=== PATIENT | female | born 1995 | race Caucasian/White ===

== ENCOUNTER 2020-07-12 19:02 | Emergency (ER) | payer OTHER ==
[~2020-07-12] VITALS: Ht 165.1 cm; Wt 55.8 kg
[2020-07-12] MEDS ORDERED: CLONAZEPAM1 MG PO (19:39)
[2020-07-12] MEDS ORDERED: ZOLOFT50 MG PO (19:40)
[2020-07-12] MEDS ORDERED: ADDERALL 20 MG20 MG PO (19:40)
== END 2020-07-12 22:18 | disposition home or self-care (01) ==
LOC: ER 19:02
DX: B34.9 Viral infection, unspecified (principal); Z03.818 Encounter for observation for suspected exposure to other biological agents ruled out

== ENCOUNTER 2021-01-15 08:59 | Outpatient (CLI) | payer OTHER ==
[~2021-01-15 08:59] MED LIST: ADDERALL 20 MG20 MG PO; CLONAZEPAM1 MG PO; ZOLOFT50 MG PO
== END 2021-01-15 09:18 | disposition home or self-care (01) ==
LOC: SONOGRAMA 08:59
PROVIDERS: ATTEND Internal Medicine Gastroenterology
DX: R10.9 Unspecified abdominal pain (principal)

== ENCOUNTER 2022-04-30 13:15 | Emergency (ER) | payer OTHER ==
[~2022-04-30] VITALS: Ht 162.6 cm; Wt 64.4 kg
[2022-04-30] MEDS ORDERED: PROZAC10 MG (13:32)
== END 2022-04-30 16:53 | disposition home or self-care (01) ==
LOC: ER 13:15
DX: U07.1 COVID-19 (principal)

== ENCOUNTER 2022-09-13 11:06 | Outpatient (CLI) | payer OTHER ==
[~2022-09-13 11:06] MED LIST changes: +PROZAC10 MG
== END 2022-09-13 11:32 | disposition home or self-care (01) ==
LOC: SONOGRAMA 11:06
PROVIDERS: ATTEND Internal Medicine Cardiovascular Disease
DX: R10.9 Unspecified abdominal pain (principal)

== ENCOUNTER 2022-09-13 11:32 | Outpatient (CLI) | payer OTHER | END 2022-09-13 11:33 | disposition home or self-care (01) | LOC: LAB 11:32 | PROVIDERS: ATTEND Internal Medicine Cardiovascular Disease | DX: I10 Essential (primary) hypertension (principal); E11.9 Type 2 diabetes mellitus without complications; E03.9 Hypothyroidism, unspecified; E78.2 Mixed hyperlipidemia; E55.9 Vitamin D deficiency, unspecified ==